=== PATIENT | female | born 1935 | race Caucasian/White ===

== ENCOUNTER 2017-03-15 07:16 | Emergency (ER) | payer OTHER ==
[2017-03-15] MEDS ORDERED: HYDROmorphONE/DILAUDID 1 MG/ML SYR IVP ONE (07:48)
[2017-03-15] MEDS ORDERED: NS 100 ML BAG IV ONE (08:05)
--- NOTE | 2017-03-15 08:09 | EDPHY ---
H & P Stated Complaint: pain in left buttock and leg to knee Time Seen by Provider: 03/15/17 07:26 HPI/ROS: CHIEF COMPLAINT: Low back pain HISTORY OF PRESENT ILLNESS: This is a 81-year-old female presents reporting that she developed pain across her lower back about 2 weeks ago. Pain has been progressively worsening with intermittent episodes of pain radiating into her left buttock and down the side of her left leg. She has noted weakness in the legs, at the hip flexors, and is unable to lift her legs when lying down without assistance. No pain or numbness below the level of the knees. Discomfort is relieved with holding still. She has been taking tramadol as well. Patient reports she saw a physician in Dr. Cruz at [facility] last week and has an MRI scheduled for tomorrow. Patient denies any fevers or chills. No abdominal pain vomiting, diarrhea, or urinary complaints. REVIEW OF SYSTEMS: Aside from elements discussed in the HPI, a comprehensive 10-point review of systems was reviewed and is negative. PAST MEDICAL HISTORY: Hypertension, sinus disease. SOCIAL HISTORY: Patient lives at [facility]. She typically ambulates with a wheeled walker. VITAL SIGNS Reviewed by me. GENERAL: Pleasant, alert, appears in some discomfort when moving around the bed. HEENT: Atraumatic. Eyes: No icterus, no injection. Mouth: moist mucous membranes. No erythema or lesions. Neck: supple with no adenopathy. LUNGS: Clear to auscultation bilaterally, no wheezes, rhonchi or rales. CARDIAC: Regular rate and rhythm, no rubs, murmurs or gallops. ABDOMEN: Soft, nontender, nondistended, bowel sounds normal. BACK: No CVA tenderness. Tenderness to palpation over the lower lumbar spine. Tenderness to palpation paraspinous muscles as well as deep in the right buttock over the SI joint. No erythema. No warmth. EXTREMITIES: No trauma. No edema. NEURO: Alert and oriented, motor strength: 4/5 right hip flexor, 4-/5 left hip flexor, quadriceps 5/5, hamstrings 5/5 bilaterally. Plantar and dorsiflexion 5/5 bilaterally. Extensor hallucis longus 5/5. Sensation diminished bilaterally over the feet. Normal sensation lateral thighs bilaterally. Reflex 2/4 patellar, 1/4 ankle. SKIN: Warm and dry, no rash. PSYCHIATRIC: Normal mentation, no agitation. - Personal History Current Tetanus Diphtheria and Acellular Pertussis (TDAP): Yes Tetanus Vaccine Date: within 10 yrs - Medical/Surgical History Other PMH: high cholestrol, hypothyroidism, hip surg, carotid endarectomy, colon surg - Social History Smoking Status: Former smoker Constitutional: Initial Vital Signs Temperature (C) 36.8 C 03/15/17 07:31 Heart Rate 70 03/15/17 07:31 Respiratory Rate 20 03/15/17 07:31 Blood Pressure 159/69 H 03/15/17 07:31 O2 Sat (%) 97 03/15/17 07:31 O2 Delivery Mode Room Air Allergies/Adverse Reactions: Sulfa (Sulfonamide Antibiotics) Allergy (Verified 03/15/17 07:34) Home Medications: Medication Instructions Recorded Albuterol 01/11/16 Aspirin 01/11/16 Atorvastatin Calcium 01/11/16 Flonase Nasal [place] 01/11/16 Levothyroxine 01/11/16 Losartan Potassium 01/11/16 Ultram 50 mg (RX) 01/11/16 Furosemide 03/15/17 GABAPENTIN 03/15/17 Hydrocodone/APAP 5/325 [Spade 1 - 2 tab PO Q6H PRN #14 tab 03/15/17 5/325 (RX)] Multiple Vitamin 03/15/17 Pantoprazole Sodium 03/15/17 Seroquel 03/15/17 Zoloft 100mg (*) 03/15/17 methylPREDNISolone [Medrol Dose 4 mg PO DAILY #1 ea 03/15/17 Sonny] Medical Decision Making - Diagnostics Imaging Results: Imaging Impressions Lumbar Spine X-Ray 03/15/17 07:50 Impression: 1. Degenerative disk disease at L5-S1. 2. This patient might benefit from a DEXA scan. Pelvis X-Ray 03/15/17 07:50 Impression: 1.Degenerative change in the low lumbar spine. 2. Atherosclerotic disease. 3. 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 Xray: Lumbar spine and pelvis x-rays were obtained. I viewed the images myself on the PACS system. My interpretation of the images is: DJD, no acute fracture seen, status post left hip replacement. The radiology interpretation is : Pending at this time. I discussed the results with the patient. ED Course/Re-evaluation: 81-year-old female presenting with 2 week history of progressively worsening low back pain not associated with weakness in the hip flexors. She has been seen at outside [facility] spine clinic but has not had an MRI performed. Patient's primary care physician is Dr. Bray. I discussed the patient's course with her primary care physician. Patient actually has a history of normal pressure hydrocephalus and has had issues with back pain previously. She uses gabapentin for back pain and has had Vicodin in the past. Dr. Bray tells me that the patient was seen at [facility] in the middle of January also for this back pain. Will increase patient's gabapentin to 4 times a day, advised her to use Vicodin as needed for more severe pain, and place her on a Medrol Dosepak. Dr. Bray will follow up with the patient's MRI tomorrow. Patient's medications are managed by the staff at [facility]. I left a message with Dr. Cruz office to advised that the patient was in the emergency department requesting help with her pain. I also discussed the patient 's course and the plan of action with the patient's niece, Aydee, at the patient's request. Differential Diagnosis: After history was obtained and physical exam performed, the differential for back pain was considered including but not limited to muscular pain, herniated disc, spine fracture, intra-abdominal causes, and urinary tract infection. - Data Points Laboratory Results: Laboratory Results 03/15/17 08:05 03/15/17 08:05 03/15/17 03/15/17 08:05 08:05 WBC 5.87 10^3/uL 10^3/uL (3.80-9.50) RBC 4.17 10^6/uL L 10^6/uL (4.18-5.33) Hgb 11.9 g/dL L g/dL (12.6-16.3) Hct 35.7 % L % (38.0-47.0) MCV 85.6 fL fL (81.5-99.8) MCH 28.5 pg pg (27.9-34.1) MCHC 33.3 g/dL g/dL (32.4-36.7) RDW 16.8 % H % (11.5-15.2) Plt Count 304 10^3/uL 10^3/uL (150-400) MPV 9.1 fL fL (8.7-11.7) Neut % (Auto) 61.1 % % (39.3-74.2) Lymph % (Auto) 24.0 % % (15.0-45.0) [place] % (Auto) 9.7 % % (4.5-13.0) Eos % (Auto) 4.3 % % (0.6-7.6) Baso % (Auto) 0.7 % % (0.3-1.7) Nucleat RBC Rel Count 0.0 % % (0.0-0.2) Absolute Neuts (auto) 3.59 10^3/uL 10^3/uL (1.70-6.50) Absolute Lymphs (auto) 1.41 10^3/uL 10^3/uL (1.00-3.00) Absolute Monos (auto) 0.57 10^3/uL 10^3/uL (0.30-0.80) Absolute Eos (auto) 0.25 10^3/uL 10^3/uL (0.03-0.40) Absolute Basos (auto) 0.04 10^3/uL 10^3/uL (0.02-0.10) Absolute Nucleated RBC 0.00 10^3/uL 10^3/uL (0-0.01) Immature Gran % 0.2 % % (0.0-1.1) Immature Gran # 0.01 10^3/uL 10^3/uL (0.00-0.10) Sodium 137 mEq/L mEq/L (134-144) Potassium 3.8 mEq/L mEq/L (3.5-5.2) Chloride 96 mEq/L L mEq/L (97-110) Carbon Dioxide 23 mEq/l mEq/l (22-31) Anion Gap 18 mEq/L H mEq/L (8-16) BUN 14 mg/dL mg/dL (7-23) Creatinine 1.3 mg/dL H mg/dL (0.6-1.0) Estimated GFR 40 Glucose 92 mg/dL mg/dL (70-100) Calcium 9.2 mg/dL mg/dL (8.5-10.4) Medications Given: Discontinued Medications Hydrocodone Bitart/Acetaminophen (Spade 5/325) 1 tab PO EDNOW ONE Stop: 03/15/17 09:58 Last Admin: 03/15/17 10:10 Dose: 1 tab Cyclobenzaprine HCl (Flexeril) 10 mg PO EDNOW ONE Stop: 03/15/17 09:58 Last Admin: 03/15/17 10:29 Dose: Not Given Dexamethasone (Decadron) 8 mg PO EDNOW ONE Stop: 03/15/17 09:49 Last Admin: 03/15/17 10:10 Dose: 8 mg Diazepam (Valium) 5 mg PO EDNOW ONE Stop: 03/15/17 09:59 Last Admin: 03/15/17 10:10 Dose: 5 mg Hydromorphone HCl (Dilaudid) 0.5 mg IVP EDNOW ONE Stop: 03/15/17 07:49 Last Admin: 03/15/17 08:10 Dose: 0.5 mg Departure - Departure Disposition: Home, Routine, Self-Care Clinical Impression: Lumbar spine pain, Lumbar back pain with radiculopathy affecting left lower extremity Condition: Good Instructions: Acute Low Back Pain (ED), Lumbar Radiculopathy (ED) Additional Instructions: 1. Please increase your gabapentin to 4 times a day. 2. Okay to use hydrocodone (Vicodin) 1 tablet every 4-6 hours for severe back pain. 3. Okay to take tramadol, 1 tablet every 4 hours for moderate back pain. 4. Please begin taking Medrol Dosepak as directed. 5. Follow up tomorrow for your MRI as previously scheduled. 6. Please contact Dr. Bray if you are continuing to experience pain not relieved with these medications. Dr. Bray will also contact you after the MRI to arrange further care including potential injection. 7. If your pain is severe and not controlled with the above medications, if you began to have difficulties controlling your urine, if you have significant weakness in the legs, inability to stand, or other concerns, please return immediately to the emergency department or follow up immediately with her primary care physician. 8. I have discussed the above information with your niece. If the MRI demonstrates an issue that can be treated with an injection, Dr. Cruz would be the appropriate physician to see. Referrals: NONE *PRIMARY CARE P,. [Primary Care Provider] - As per Instructions BOO BRAY [Non Staff Provider (MD)] - As per Instructions Prescriptions: Hydrocodone/APAP 5/325 [Spade 5/325 (RX)] 1 - 2 tab PO Q6H PRN #14 tab PRN Reason: Pain methylPREDNISolone [Medrol Dose Sonny] 4 mg PO DAILY #1 ea
[2017-03-15 08:16] VITALS: O2SAT 98
[2017-03-15 09:37] LABS: % IMMATURE GRANULYOCYTES 0.2 % (0.0-1.1); ABSOLUTE IMMATURE GRANULOCYTES 0.01 10^3/uL (0.00-0.10); ADD DIFF? NO; ADD MORPH? NO; ADD SCAN? NO; ATYPICAL LYMPHOCYTE FLAG 20 (0-99); FRAGMENT RBC FLAG 0 (0-99); HEMATOCRIT 35.7 % (38.0-47.0); HEMOGLOBIN 11.9 g/dL (12.6-16.3); LEFT SHIFT FLG 0 (0-99); LIPEMIA HEMOLYSIS FLAG 80 (0-99); MEAN CELL HEMOGLOBIN 28.5 pg (27.9-34.1); MEAN CELL HEMOGLOBIN CONCENTR. 33.3 g/dL (32.4-36.7); MEAN CELL VOLUME 85.6 fL (81.5-99.8); MEAN PLATELET VOLUME 9.1 fL (8.7-11.7); PLATELET CLUMPS FLAG 10 (0-99); PLATELET COUNT 304 10^3/uL (150-400); RED BLOOD CELL COUNT 4.17 10^6/uL (4.18-5.33); RED CELL DISTRIBUTION WIDTH 16.8 % (11.5-15.2)
[2017-03-15 09:46] LABS: CALCIUM 9.2 mg/dL (8.5-10.4); CREATININE 1.3 mg/dL (0.6-1.0); POTASSIUM 3.8 mEq/L (3.5-5.2)
[2017-03-15] MEDS ORDERED: DEXAMETHASONE 4 MG TAB PO ONE (09:48)
[2017-03-15] MEDS ORDERED: HYDROCODONE/APAP 5/325 TAB PO ONE (09:57)
[2017-03-15] MEDS ORDERED: CYCLOBENZAPRINE 10 MG TAB PO ONE (09:57)
[2017-03-15] MEDS ORDERED: DIAZEPAM 5 MG TAB PO ONE (09:58)
[2017-03-15 11:13] VITALS: BP 144/73; PULSE 75; RESP 20; TEMP 97.9
== END 2017-03-15 10:50 | disposition home or self-care (01) ==
LOC: CED 07:16
DX: M54.16 Radiculopathy, lumbar region (principal); I10 Essential (primary) hypertension; Z87.891 Personal history of nicotine dependence; Z79.82 Long term (current) use of aspirin
CPT/HCPCS: 72100; 72170; 96374; 99284; J1170; 80048-PO; 85025-PO